=== PATIENT | female | born 1995 | race Caucasian/White ===

== ENCOUNTER 2019-05-23 20:40 | Emergency (ER) | payer OTHER ==
[~2019-05-23] VITALS: Ht 160 cm; Wt 95.6 kg
[2019-05-23 20:48] VITALS: BP 113/78
[2019-05-23] MEDS ORDERED: LIDOCAINE-MPF 1%, 5ML INFIL ONE (21:30)
[2019-05-23] MEDS ORDERED: LIDOCAINE-MPF 1%, 5ML ONE (21:30)
== END 2019-05-23 22:27 | disposition home or self-care (01) ==
LOC: ED 22:21
DX: L02.416 Cutaneous abscess of left lower limb (principal)
CPT/HCPCS: 10060; 99283

== ENCOUNTER 2019-05-25 20:05 | Emergency (ER) | payer OTHER ==
[~2019-05-25] VITALS: Ht 160 cm; Wt 94.8 kg
[2019-05-25 20:06] VITALS: BP 109/74
--- NOTE | 2019-05-25 20:45 | NUR ---
PACKING REMOVED FROM L THIGH WOUND BY ED PA AND BAND-AID APPLIED. PT TOLERATED WELL. D/C INSTRUCTIONS RV'WD WITH PT. INSTRUCTED PT TO RETURN FOR ANY S/S OF INFECTION. PT AMBULATED OUT OF ED WITH MOTHER WITHOUT DIFFICULTY.
== END 2019-05-25 20:54 | disposition home or self-care (01) ==
LOC: ED 20:52
DX: L02.416 Cutaneous abscess of left lower limb (principal)
CPT/HCPCS: 99282